=== PATIENT | male | born 1955 | race Caucasian/White ===

== ENCOUNTER 2018-09-23 07:01 | Emergency (ER) | payer OTHER ==
[~2018-09-23] VITALS: Ht 177.8 cm; Wt 100.2 kg
[2018-09-23 07:13] VITALS: Ht 177.8 cm; Wt 100.2 kg
[2018-09-23 08:44] VITALS: BP 131/87
== END 2018-09-23 08:44 | disposition home or self-care (01) ==
LOC: ED 07:01
DX: J06.9 Acute upper respiratory infection, unspecified (principal)
CPT/HCPCS: Q0092